=== PATIENT | female | born 1970 | race African-American/Black ===

== ENCOUNTER 2017-11-09 06:12 | Emergency (ER) | payer OTHER ==
[~2017-11-09] VITALS: Ht 165.1 cm; Wt 76.2 kg
[2017-11-09] MEDS ORDERED: CARAFATE1 GM/10 ML PO (11:28)
== END 2017-11-09 11:46 | disposition home or self-care (01) ==
LOC: ER 06:12
DX: K29.70 Gastritis, unspecified, without bleeding (principal); R10.13 Epigastric pain